=== PATIENT | female | born 1965 | race Caucasian/White ===

== ENCOUNTER 2017-02-12 13:02 | Outpatient (CLI) | payer OTHER | END 2017-02-12 13:03 | disposition home or self-care (01) | DX: Z12.31 Encounter for screening mammogram for malignant neoplasm of breast (principal) ==

== ENCOUNTER 2017-05-11 13:28 | Emergency (ER) | payer OTHER ==
--- NOTE | 2017-05-11 13:55 | ED Physician Documentation ---
PD HPI ALTERED MENTAL STATUS - Stated complaint Stated Complaint: MEMORY LOSS - Chief complaint Chief Complaint: Neuro - History obtained from History obtained from: Patient, Family - History of Present Illness Timing - onset: Today Timing - duration: Days (1) Timing - details: Gradual onset Quality / character: Confused, Disoriented, Memory Loss. No: Agitated, Combative Associated symptoms: No: Fever, Headache, Stiff neck, Dyspnea, Cough, NVD, Urinary sx, General weakness, Focal weakness, Seizure activity Contributing factors: No: Anticoagulated, Diabetic, Cancer, COPD, New medication , Recent med change, Recent illness, Recent injury, Intoxicated, Substance abuse Basline status: Alert and oriented X 3, Ambulatory, Independent Similar symptoms before: Diagnosis (hepatic encephalopathy) Recently seen: Not recently seen - Additional information Additional information: Patient is a 51-year-old female with a history of hepatic cirrhosis who usually takes lactulose twice a day, but has not been consistent with a slightly. Increasing confusion over the past several days, worse today. No fevers. No diarrhea. No headache. No chest pain. No shortness of breath. Today she is disoriented to place and time. She does know who she is. Here with family Review of Systems Unable to obtain: Confused Constitutional: denies: Fever, Chills Nose: denies: Rhinorrhea / runny nose, Congestion Throat: denies: Sore throat Cardiac: denies: Chest pain / pressure Respiratory: denies: Cough GI: denies: Nausea, Vomiting Skin: denies: Rash Musculoskeletal: denies: Neck pain, Back pain Neurologic: denies: Focal weakness, Numbness, Headache, Head injury PD PAST MEDICAL HISTORY - Past Medical History Past Medical History: Yes Cardiovascular: Other Respiratory: Sleep apnea Psych: Anxiety - Past Surgical History General: Cholecystectomy, Appendectomy /MUSIC ARTIST: Hysterectomy, Other - Present Medications Home Medications: Ambulatory Orders Medication Instructions Recorded Confirmed Cyclobenzaprine [Flexeril] 10 mg PO TID PRN 07/20/15 05/11/17 Lisinopril 10 mg PO DAILY 07/20/15 05/11/17 Vitamin E 800 unit PO DAILY 07/20/15 05/11/17 Ondansetron HCl [Zofran] 4 mg PO Q6H PRN #10 tablet 09/02/15 05/11/17 Lactobacillus Acidophilus 5 mg PO DAILY 05/07/16 05/11/17 [Acidophilus] Lactulose 20 gm PO BID 05/07/16 05/11/17 Venlafaxine [Effexor] 37.5 mg PO DAILY 05/07/16 05/11/17 [place]-3 Fatty Acids [Fish Oil] 1,000 mg PO DAILY 05/15/16 05/11/17 Nitrofurantoin Monohyd/M-Cryst 100 mg PO BID #14 capsule 05/11/17 [Macrobid 100 mg Capsule] Spironolactone 0 mg PO DAILY 05/11/17 05/11/17 - Allergies Allergies/Adverse Reactions: Allergies Allergy/AdvReac Type Severity Reaction Status Date / Time cefuroxime axetil * Allergy Unknown Verified 07/20/15 15:52 [From Ceftin] - Social History Does the pt smoke?: No Smoking Status: Never smoker Does the pt drink ETOH?: No Does the pt have substance abuse?: No PD ED PE NORMAL - Vitals Vital signs reviewed: Yes - General General: No acute distress, Well developed/nourished - HEENT HEENT: Atraumatic, PERRL, Moist mucous membranes, Other (Alert, oriented to person only.) - Neck Neck: Supple, no meningeal sign - Cardiac Cardiac: RRR, Strong equal pulses - Respiratory Respiratory: No respiratory distress, Clear bilaterally - Abdomen Abdomen: Soft, Non tender, Non distended - Back Back: No CVA TTP, No spinal TTP - Derm Derm: Warm and dry, No rash - Extremities Extremities: No deformity, Other (no asterixis) - Neuro Neuro: administrative assistant 2-12 intact, No motor deficit, No sensory deficit, Normal speech Results - Vitals Vitals: Vital Signs - 24 hr 05/11/17 05/11/17 13:32 15:19 Temperature 36.6 C Heart Rate 71 66 Respiratory 16 16 Rate Blood Pressure 138/81 H 123/44 L O2 Saturation 100 98 Oxygen O2 Source Room air - Labs Labs: Laboratory Tests 05/11/17 05/11/17 05/11/17 13:50 13:50 13:50 WBC 2.3 L RBC 3.48 L Hgb 11.1 L Hct 31.9 L MCV 91.5 MCH 31.8 H MCHC 34.7 RDW 16.9 H Plt Count 59 L MPV 7.9 Neut # 1.6 Lymph # 0.5 L [place] # 0.2 Eos # 0.0 Baso # 0.0 Absolute Nucleated RBC 0.00 Nucleated RBCs 0.1 Platelet Estimate DECREASED (<130,000) RBC Morph Micro Appear NORMAL APPEARANCE PT 15.6 H INR 1.4 H APTT 29.8 Sodium 139 Potassium 3.6 Chloride 106 Carbon Dioxide 26 Anion Gap 7.0 BUN 15 Creatinine 0.7 Estimated GFR (MDRD) 89 Glucose 97 Calcium 8.8 Total Bilirubin 2.1 H AST 51 H ALT 48 Alkaline Phosphatase 106 Ammonia Total Protein 6.0 L Albumin 3.3 Globulin 2.7 Albumin/Globulin Ratio 1.2 Lipase 24 Urine Color Urine Clarity Urine pH Ur Specific [place] Urine Protein Urine Glucose (UA) Urine Ketones Urine Occult Blood Urine Nitrite Urine Bilirubin Urine Urobilinogen Ur Leukocyte Esterase Urine RBC Urine WBC Ur Squamous Epith Cells Urine Bacteria Ur Microscopic Review Urine Culture Comments Salicylates < 6.0 Urine Opiates Screen Ur Oxycodone Screen Urine Methadone Screen Ur Propoxyphene Screen Acetaminophen < 10 L Ur Barbiturates Screen Ur Tricyclics Screen Ur Phencyclidine Scrn Ur Amphetamine Screen U Methamphetamines Scrn U Benzodiazepines Scrn Urine Cocaine Screen U Cannabinoids Screen Ethyl Alcohol < 5.0 05/11/17 05/11/17 14:10 14:10 WBC RBC Hgb Hct MCV MCH MCHC RDW Plt Count MPV Neut # Lymph # [place] # Eos # Baso # Absolute Nucleated RBC Nucleated RBCs Platelet Estimate RBC Morph Micro Appear PT INR APTT Sodium Potassium Chloride Carbon Dioxide Anion Gap BUN Creatinine Estimated GFR (MDRD) Glucose Calcium Total Bilirubin AST ALT Alkaline Phosphatase Ammonia 38.2 H Total Protein Albumin Globulin Albumin/Globulin Ratio Lipase Urine Color DARK YELLOW Urine Clarity CLEAR Urine pH 6.0 Ur Specific [place] 1.025 Urine Protein NEGATIVE Urine Glucose (UA) NEGATIVE Urine Ketones NEGATIVE Urine Occult Blood TRACE-INTA Urine Nitrite POSITIVE H Urine Bilirubin NEGATIVE Urine Urobilinogen 2 H Ur Leukocyte Esterase NEGATIVE Urine RBC 0-5 Urine WBC 6-10 H Ur Squamous Epith Cells RARE Squamous Urine Bacteria Many H Ur Microscopic Review INDICATED Urine Culture Comments INDICATED Salicylates Urine Opiates Screen NEGATIVE Ur Oxycodone Screen NEGATIVE Urine Methadone Screen NEGATIVE Ur Propoxyphene Screen NEGATIVE Acetaminophen Ur Barbiturates Screen NEGATIVE Ur Tricyclics Screen POSITIVE H Ur Phencyclidine Scrn NEGATIVE Ur Amphetamine Screen NEGATIVE U Methamphetamines Scrn NEGATIVE U Benzodiazepines Scrn POSITIVE H Urine Cocaine Screen NEGATIVE U Cannabinoids Screen NEGATIVE Ethyl Alcohol - Rads (name of study) head CT Radiology: Prelim report reviewed, EMP read contemporaneously, See rad report ( No acute intracranial abnormalities) PD MEDICAL DECISION MAKING - ED course Complexity details: reviewed results, re-evaluated patient, considered differential, d/w patient, d/w family ED course: Patient is a 51-year-old female who presents to the emergency department with altered mental status, progressing over the past 2 days. Her ammonia level is found to be lower than her baseline, but she is found to have a UTI. Will treat her for this and expect her mental status to improve. It is already improving in the emergency department and she is alert and oriented to person and place, though still confused intermittently about time. She is well- appearing, nontoxic. No evidence of acute stroke. No other acute laboratory abnormalities. Did offer observation, but family declines and would like to take her home at this time. They will return if she fails to improve as expected over the next 24 hours. Patient and family counseled regarding signs and symptoms for which I believe and urgent re-evaluation would be necessary. Patient with good understanding of and agreement to plan and is comfortable going home at this time Departure - Departure Disposition: 01 Home, Self Care Clinical Impression: Altered mental status Qualifiers: Altered mental status type: unspecified Qualified Code(s): R41.82 - Altered mental status, unspecified UTI (urinary tract infection) Qualifiers: Urinary tract infection type: acute cystitis Hematuria presence: without hematuria Qualified Code(s): N30.00 - Acute cystitis without hematuria Condition: Good Instructions: ED UTI Cystitis Female Follow-Up: Manjit Griggs MD [Primary Care Provider] - Within 3 Days Prescriptions: Nitrofurantoin Monohyd/M-Cryst [Macrobid 100 mg Capsule] 100 mg PO BID #14 capsule Comments: Take all antibiotics until gone. Return if you worsen. you should improve significantly in the next 24 hours. Return if she is not improving. Discharge Date/Time: 05/11/17 15:36
[2017-05-11 13:59] LABS: BASOPHILS % (AUTO) 0.2 %; HCT - HEMATOCRIT 31.9 % (37.0-47.0); HGB - HEMOGLOBIN 11.1 g/dL (12.0-16.0); LYMPHOCYTES # (AUTO) 0.5 10^3/uL (1.5-3.5); LYMPHOCYTES % (AUTO) 20.9 %; MEAN CORPUSCULAR HEMOGLOBIN 31.8 pg (27.0-31.0); MEAN CORPUSCULAR HGB CONC 34.7 g/dL (32.0-36.0); MEAN CORPUSCULAR VOLUME 91.5 fL (81.0-99.0); MEAN PLATELET VOLUME 7.9 fL (7.9-10.8); MONOCYTES # (AUTO) 0.2 10^3/uL (0.0-1.0); MONOCYTES % (AUTO) 8.5 %; NEUTROPHILS # (AUTO) 1.6 10^3/uL (1.5-6.6); NEUTROPHILS % (AUTO) 70.4 %; NUCLEATED RED BLOOD CELLS AUTO 0.1 /100WBC; RED BLOOD COUNT 3.48 10^6/uL (4.20-5.40); RED CELL DISTRIBUTION WIDTH 16.9 % (12.0-15.0); UNCORRECTED WHITE BLOOD COUNT 2.3 x10^3/uL; WHITE BLOOD COUNT 2.3 x10^3/uL (4.8-10.8)
[2017-05-11 14:16] LABS: ALBUMIN/GLOBULIN RATIO 1.2 (1.0-2.2); BILIRUBIN,TOTAL 2.1 mg/dL (0.2-1.0); BUN - BLOOD UREA NITROGEN 15 mg/dL (6-20); CALCIUM 8.8 mg/dL (8.5-10.3); CARBON DIOXIDE - CO2 26 mmol/L (21-32); CHLORIDE 106 mmol/L (101-111); CREATININE 0.7 mg/dL (0.4-1.0); GFR - MDRD 89 (>89); GLUCOSE 97 mg/dL (70-100); LIPASE 24 U/L (22-51); POTASSIUM 3.6 mmol/L (3.5-5.0); SALICYLATE < 6.0 mg/dL; SODIUM 139 mmol/L (135-145)
[2017-05-11 14:19] LABS: ACETAMINOPHEN < 10 ug/mL (10-30)
[2017-05-11 14:24] LABS: BILIRUBIN,URINE NEGATIVE (NEGATIVE)
[2017-05-11 14:27] LABS: INR 1.4 (0.8-1.2); PT - PROTHROMBIN TIME 15.6 secs (9.9-12.6)
[2017-05-11 14:34] LABS: PARTIAL THROMBOPLASTIN TIME 29.8 secs (24.9-33.3)
[2017-05-11 14:36] LABS: UA w/ MICROSCOPIC CHARGE YES
[2017-05-11 14:37] LABS: UR CULTURE IF IND INDICATED
[2017-05-11 14:42] LABS: PLATELET ESTIMATE, MANUAL DECREASED (<130,000) (NORMAL)
[2017-05-11] MEDS ORDERED: NITROFURANTOIN MACRO 100 MG CAPSULE PO STA (15:16)
--- NOTE | 2017-05-11 15:19 | CT Preliminary Report ---
Exam: CT Head W/O IMPRESSION: 1. No acute intracranial abnormality is identified. [facility] SITE ID: [id number]
[2017-05-11 15:20] VITALS: BP 123/44
[2017-05-11] MEDS ORDERED: NITROFURANTOIN MACRO 100 MG CAPSULE PO ONE (15:20)
--- NOTE | 2017-05-11 15:22 | CT Report ---
EXAM: CT HEAD EXAM DATE: 05/11/2017 03:00 PM. CLINICAL HISTORY: ALOC. COMPARISON: None. TECHNIQUE: Multiaxial CT images were obtained from the foramen magnum to the vertex. IV contrast: Non e. Reformats: Coronal. In accordance with CT protocol optimization, one or more of the following dose reduction techniques w ere utilized for this exam: automated exposure control, adjustment of mA and/or KV based on patient s ize, or use of iterative reconstructive technique. FINDINGS: Parenchyma: No intraparenchymal hemorrhage. No evidence of mass, midline shift, or CT findings of inf arction. Nevarez-white differentiation is distinct. Extraaxial Spaces: Normal for age. No subdural or epidural collections identified. Ventricles: Normal in size and position. Sinuses: Imaged paranasal sinuses, orbits, and mastoids show no significant abnormality. Bones: No evidence of fracture or calvarial defect. Other: None. IMPRESSION: 1. No acute intracranial abnormality is identified. [facility] Referring Provider Line: [phone] SITE ID: [id number]
== END 2017-05-11 15:36 | disposition home or self-care (01) ==
LOC: ED 13:28
DX: R41.82 Altered mental status, unspecified (principal); N30.00 Acute cystitis without hematuria; K74.60 Unspecified cirrhosis of liver; G47.30 Sleep apnea, unspecified
CPT/HCPCS: 36415; 70450; 80053; 80306; 80307; 80320; 80329; 81001; 82140; 83690; 85025; 85610; 85730; 87077; 87086; 87181; 99283; 99284; A9270; 81003

== ENCOUNTER 2017-05-26 08:35 | Day surgery (SDC) | payer OTHER ==
[2017-05-26] MEDS ORDERED: LACTATED RINGERS 1,000 ML IV ONE ×2 (09:40→12:18)
[2017-05-26] MEDS ORDERED: fentaNYL 100 MCG/2 ML VIAL IVP ONE (11:27)
[2017-05-26] MEDS ORDERED: MIDAZOLAM 2 MG/2 ML VIAL IVP ONE (11:27)
[2017-05-26] MEDS ORDERED: PROPOFOL 200 MG/20 ML VIAL IVP ONE (11:27)
[2017-05-26] MEDS ORDERED: LIDO GARGLE 30 ML BOTTLE PO ONE (11:32)
[2017-05-26] MEDS ORDERED: BENZOCAINE/TETRACAINE/BUTAMBEN SPRAY 56 GM TOP ONE (11:32)
[2017-05-26] MEDS ORDERED: LACTATED RINGERS 800 ML IV ONE (13:45)
[2017-05-26 13:59] VITALS: BP 140/68
== END 2017-05-26 08:36 | disposition home or self-care (01) ==
LOC: SDS 08:35
PROVIDERS: ATTEND Surgery
PROC: 0DBN8ZX Excision of Sigmoid Colon, Via Natural or Artificial Opening Endoscopic, Diagnostic (ICD-10-PCS; principal; 2017-05-26 10:15)
PROC: 0DB78ZX Excision of Stomach, Pylorus, Via Natural or Artificial Opening Endoscopic, Diagnostic (ICD-10-PCS; 2017-05-26 10:15)
DX: Z12.11 Encounter for screening for malignant neoplasm of colon (principal); K57.30 Diverticulosis of large intestine without perforation or abscess without bleeding; D12.5 Benign neoplasm of sigmoid colon; K64.8 Other hemorrhoids; K29.50 Unspecified chronic gastritis without bleeding; K59.00 Constipation, unspecified; I10 Essential (primary) hypertension; E66.01 Morbid (severe) obesity due to excess calories; K74.60 Unspecified cirrhosis of liver; Z76.82 Awaiting organ transplant status; Z90.49 Acquired absence of other specified parts of digestive tract; Z82.49 Family history of ischemic heart disease and other diseases of the circulatory system; Z68.41 Body mass index [BMI] 40.0-44.9, adult
CPT/HCPCS: 43239; 45385; 87081; A9270; J7120

== ENCOUNTER 2017-11-18 18:49 | Outpatient (CLI) | payer OTHER ==
--- NOTE | 2017-11-19 09:55 | Ultrasound Report ---
DATE OF SERVICE: 11/18/2017 RIGHT UPPER QUADRANT ULTRASOUND: 11/18/2017 CLINICAL INDICATION: Nonalcoholic steatohepatitis. COMPARISON: Ultrasound 08/07/2015. CT 01/30/2016. TECHNIQUE: Real-time scanning was performed with operations support representative static images obtained. FINDINGS: The liver measures 14.3 cm. Hepatic echogenicity is heterogeneous, with nodularity of the contour, compatible with cirrhosis. No focal hepatic lesion is appreciated. No intrahepatic biliary dilatation is seen. The common bile duct measures 6 mm. The gallbladder is surgically absent. The right kidney measures 11.5 cm, and demonstrates no hydronephrosis. IMPRESSION: CIRRHOTIC CONTOUR TO THE LIVER, WITH HETEROGENEOUS ECHOTEXTURE. NO FOCAL LIVER LESION OR BILIARY DILATATION. TD: 11/19/2017 10:55
== END 2017-11-18 18:50 | disposition home or self-care (01) ==
LOC: DI 18:49
PROVIDERS: ATTEND Internal Medicine Gastroenterology
DX: K75.81 Nonalcoholic steatohepatitis (NASH) (principal)
CPT/HCPCS: 76705

== ENCOUNTER 2017-12-08 11:00 | Outpatient (CLI) | payer OTHER ==
[2017-12-08 19:13] LABS: INR 1.2 (0.8-1.2); PT - PROTHROMBIN TIME 13.8 secs (9.9-12.6)
[2017-12-08 19:14] LABS: BASOPHILS % (AUTO) 0.2 %; HGB - HEMOGLOBIN 11.8 g/dL (12.0-16.0); LYMPHOCYTES % (AUTO) 20.3 %; MEAN CORPUSCULAR HEMOGLOBIN 30.9 pg (27.0-31.0); MEAN CORPUSCULAR HGB CONC 34.1 g/dL (32.0-36.0); MEAN CORPUSCULAR VOLUME 90.6 fL (81.0-99.0); MEAN PLATELET VOLUME 8.6 fL (7.9-10.8); MONOCYTES % (AUTO) 8.4 %; NEUTROPHILS % (AUTO) 71.1 %; PLT - PLATELET COUNT 70 10^3/uL (130-450); RED BLOOD COUNT 3.83 10^6/uL (4.20-5.40); RED CELL DISTRIBUTION WIDTH 17.3 % (12.0-15.0); WHITE BLOOD COUNT 2.1 x10^3/uL (4.8-10.8)
[2017-12-08 19:19] LABS: ABNORMAL LYMPHS % (MANUAL) 0 %; BAND NEUTROPHILS % (MANUAL) 0 %
[2017-12-08 19:22] LABS: ALBUMIN 3.4 g/dL (3.2-5.5); BILIRUBIN,DIRECT 0.5 mg/dL (0.1-0.5); BILIRUBIN,TOTAL 2.5 mg/dL (0.2-1.0); CALCIUM 8.4 mg/dL (8.5-10.3); CREATININE 0.6 mg/dL (0.4-1.0); TOTAL PROTEIN 6.1 g/dL (6.7-8.2)
[2017-12-08 19:48] LABS: LYMPHOCYTES # (MANUAL) 0.5 10^3/uL (1.5-3.5); LYMPHOCYTES % (MANUAL) 23 %; MONOCYTES # (MANUAL) 0.1 10^3/uL (0.0-1.0); NEUTROPHILS # (MANUAL) 1.5 10^3/uL (1.5-6.6); NEUTROPHILS % (MANUAL) 70 %
[2017-12-08 19:49] LABS: DIFFERENTIAL COMMENT MANUAL DIFFERENTIAL; PLATELET ESTIMATE, MANUAL DECREASED (<130,000) (NORMAL); PLATELET MORPHOLOGY NORMAL APPEARANCE (NORMAL)
== END 2017-12-08 11:01 | disposition home or self-care (01) ==
LOC: LAB.N 11:00
PROVIDERS: ATTEND Internal Medicine Gastroenterology
DX: K75.81 Nonalcoholic steatohepatitis (NASH) (principal)
CPT/HCPCS: 36415; 80048; 80076; 81599; 82105; 85025; 85610

== ENCOUNTER 2018-10-22 10:45 | Outpatient (CLI) | payer OTHER ==
[2018-10-22 19:19] LABS: BASOPHILS % (AUTO) 0.3 %; EOSINOPHILS % (AUTO) 0.1 %; LYMPHOCYTES % (AUTO) 17.3 %; MEAN CORPUSCULAR HEMOGLOBIN 30.3 pg (27.0-31.0); MEAN CORPUSCULAR HGB CONC 33.1 g/dL (32.0-36.0); MEAN CORPUSCULAR VOLUME 91.7 fL (81.0-99.0); MEAN PLATELET VOLUME 7.6 fL (7.9-10.8); MONOCYTES % (AUTO) 5.5 %; NEUTROPHILS % (AUTO) 76.8 %; PLT - PLATELET COUNT 78 10^3/uL (130-450); RED BLOOD COUNT 3.64 10^6/uL (4.20-5.40); RED CELL DISTRIBUTION WIDTH 16.9 % (12.0-15.0); WHITE BLOOD COUNT 2.5 x10^3/uL (4.8-10.8)
[2018-10-22 19:34] LABS: ABNORMAL LYMPHS % (MANUAL) 0 %; BAND NEUTROPHILS % (MANUAL) 0 %
[2018-10-22 19:50] LABS: LYMPHOCYTES # (MANUAL) 0.4 10^3/uL (1.5-3.5); LYMPHOCYTES % (MANUAL) 15 %; MONOCYTES # (MANUAL) 0.2 10^3/uL (0.0-1.0); NEUTROPHILS % (MANUAL) 79 %
[2018-10-22 19:51] LABS: ALBUMIN 3.2 g/dL (3.2-5.5); ALBUMIN/GLOBULIN RATIO 1.2 (1.0-2.2); ALKALINE PHOSPHATASE 99 IU/L (42-121); ALT ALANINE AMINOTRANSFERASE 28 IU/L (10-60); AST ASPARTATE AMINOTRANSFERASE 51 IU/L (10-42); BILIRUBIN,TOTAL 3.3 mg/dL (0.2-1.0); BUN - BLOOD UREA NITROGEN 9 mg/dL (6-20); CALCIUM 8.3 mg/dL (8.5-10.3); CARBON DIOXIDE - CO2 25 mmol/L (21-32); CHLORIDE 106 mmol/L (101-111); CHOL/HDL RATIO 3.5 (<4.4); CHOLESTEROL 156 mg/dL; CREATININE 0.5 mg/dL (0.4-1.0); DIFFERENTIAL COMMENT MANUAL DIFFERENTIAL; GFR - MDRD 130 (>89); GLUCOSE 98 mg/dL (70-100); HDL CHOLESTEROL 44 mg/dL; LDL CHOLESTEROL,CALCULATED 103 mg/dL; LDL/HDL RATIO 2.3 (<4.4); PLATELET ESTIMATE, MANUAL DECREASED (<130,000) (NORMAL); PLATELET MORPHOLOGY NORMAL APPEARANCE (NORMAL); RBC MORPHOLOGY (MULTIPLE) 1+ ANISOCYTOSIS (NORMAL); SODIUM 135 mmol/L (135-145); TOTAL PROTEIN 5.8 g/dL (6.7-8.2); VLDL CHOLESTEROL 9 mg/dL
[2018-10-22 19:58] LABS: INR 1.3 (0.8-1.2); PT - PROTHROMBIN TIME 15.2 secs (9.9-12.6)
[2018-10-22 20:14] LABS: HB2 TOTAL 11.4 g/dL; HEMOGLOBIN A1C 0.28 g/dL; HEMOGLOBIN A1C % 4.4 % (4.6-6.2)
== END 2018-10-22 23:59 | disposition home or self-care (01) ==
LOC: LAB.WCP 10:45
PROVIDERS: ATTEND Family Medicine
DX: K72.90 Hepatic failure, unspecified without coma (principal); K76.6 Portal hypertension; K74.60 Unspecified cirrhosis of liver; R06.09 Other forms of dyspnea; R16.1 Splenomegaly, not elsewhere classified; D61.818 Other pancytopenia; R73.9 Hyperglycemia, unspecified
CPT/HCPCS: 36415; 80053; 80061; 82043; 83036; 83721; 83880; 84443; 85025; 85610

== ENCOUNTER 2018-10-28 12:43 | Outpatient (CLI) | payer OTHER ==
--- NOTE | 2018-10-29 13:39 | Ultrasound Report ---
Reason: HEPATIC ENCEPHALOPATHY, PORTAL HTN, DYSPNEA ON EXE Procedure Date: 10/28/2018 Accession Number: [id number] / [id number] Procedure: US - Abdomen Limited CPT Code: FULL RESULT: EXAM: ABDOMEN ULTRASOUND LIMITED, RUQ EXAM DATE: 10/28/2018 02:09 PM. CLINICAL HISTORY: Hepatic encephalopathy, portal hypertension, dyspnea on exertion. COMPARISON: Abdomen limited 11/18/2017 7:07 PM. Chest 2 view PA/lat 10/22/2018 11:12 AM. TECHNIQUE: Real-time scanning was performed with static images obtained. FINDINGS: Liver: Diffusely heterogeneous liver. Irregular capsule compatible with cirrhosis. No mass or intrahepatic bile duct dilation noted. 13.8 cm. Main portal vein flow: Hepatofugal flow. Gallbladder: Surgically absent. Biliary System: CBD measures 3 mm. No intrahepatic or extrahepatic ductal dilatation. Other: Right kidney measures 13.4 cm. No hydronephrosis. No significant ascites. Comment: Per report, the patient became unresponsive at the end of the study. CODE BLUE was called. Patient mental status improved following the code team arrival. IMPRESSION: 1. Cirrhotic liver. No mass. Hepatofugal flow concerning for portal hypertension. 2. Gallbladder surgically absent. Normal common bile duct. [facility]
== END 2018-10-28 12:44 | disposition home or self-care (01) ==
LOC: DI 12:43
PROVIDERS: ATTEND Family Medicine
DX: R06.00 Dyspnea, unspecified (principal); I51.7 Cardiomegaly; I27.20 Pulmonary hypertension, unspecified; I35.0 Nonrheumatic aortic (valve) stenosis; K76.6 Portal hypertension; K74.60 Unspecified cirrhosis of liver; K72.91 Hepatic failure, unspecified with coma; Z90.49 Acquired absence of other specified parts of digestive tract
CPT/HCPCS: 36415; 76705; 82140; 93306

== ENCOUNTER 2018-11-13 15:48 | Outpatient (CLI) | payer OTHER ==
--- NOTE | 2018-11-16 08:36 | Mammography Report ---
Reason: SCREENING MAMMO Procedure Date: 11/13/2018 Accession Number: [id number] / [id number] Procedure: MGN - Screening Mammo Dig Bilat CPT Code: FULL RESULT: EXAM: Screening Mammo Dig Bilat DATE: 11/13/2018 4:17 PM CLINICAL HISTORY: Screening encounter. History of early menses. History of bilateral breast reduction and left breast biopsy with benign results. TECHNIQUE: Bilateral CC, laterally exaggerated CC, MLO views were obtained. COMPARISON: None FINDINGS: The breasts demonstrate diffuse fatty replacement bilaterally. Bilateral postsurgical changes including coarse typically benign calcifications are noted. No suspicious masses, clustered microcalcifications, or regions of architectural distortion are identified. IMPRESSION: Benign findings RECOMMENDATION: Routine annual screening unless otherwise clinically indicated. BIRADS CATEGORY 2: Benign findings STANDARD QUALIFYING STATEMENTS: 1. This examination was reviewed with the aid of Computer-Aided Detection (CAD). 2. A negative or benign imaging report should not preclude biopsy if clinically suspicious findings are present. 3. Dense breasts may obscure an underlying neoplasm. 4. This examination was reviewed without the aid of 3D breast imaging (tomosynthesis).
== END 2018-11-13 15:49 | disposition home or self-care (01) ==
LOC: DI.N 15:48
DX: Z12.31 Encounter for screening mammogram for malignant neoplasm of breast (principal)
CPT/HCPCS: 77067

== ENCOUNTER 2018-12-16 11:07 | Outpatient (CLI) | payer OTHER ==
[2018-12-16 11:40] LABS: BASOPHILS % (AUTO) 0.3 %; HGB - HEMOGLOBIN 11.4 g/dL (12.0-16.0); LYMPHOCYTES # (AUTO) 0.5 10^3/uL (1.5-3.5); LYMPHOCYTES % (AUTO) 18.4 %; MEAN CORPUSCULAR HEMOGLOBIN 31.3 pg (27.0-31.0); MEAN CORPUSCULAR HGB CONC 35.2 g/dL (32.0-36.0); MEAN PLATELET VOLUME 8.4 fL (7.9-10.8); MONOCYTES # (AUTO) 0.2 10^3/uL (0.0-1.0); NEUTROPHILS % (AUTO) 75.3 %; PLT - PLATELET COUNT 89 10^3/uL (130-450); RED BLOOD COUNT 3.63 10^6/uL (4.20-5.40); RED CELL DISTRIBUTION WIDTH 17.9 % (12.0-15.0); WHITE BLOOD COUNT 2.6 x10^3/uL (4.8-10.8)
[2018-12-16 11:45] LABS: ALBUMIN 3.2 g/dL (3.2-5.5); ALBUMIN/GLOBULIN RATIO 1.1 (1.0-2.2); BILIRUBIN,TOTAL 4.1 mg/dL (0.2-1.0); CALCIUM 8.4 mg/dL (8.5-10.3); CREATININE 0.6 mg/dL (0.4-1.0)
[2018-12-16 12:20] LABS: PLATELET MORPHOLOGY NORMAL APPEARANCE (NORMAL)
[2018-12-16 12:21] LABS: PLATELET ESTIMATE, MANUAL DECREASED (<130,000) (NORMAL)
== END 2018-12-16 11:08 | disposition home or self-care (01) ==
LOC: LAB 11:07
PROVIDERS: ATTEND Family Medicine
DX: R18.8 Other ascites (principal); K72.91 Hepatic failure, unspecified with coma; R16.1 Splenomegaly, not elsewhere classified; K76.0 Fatty (change of) liver, not elsewhere classified
CPT/HCPCS: 36415; 80053; 82140; 85025